=== PATIENT | male | born 1975 | race African-American/Black ===

== ENCOUNTER 2018-07-16 13:10 | Inpatient (IN) | payer SELFPAY ==
[2018-07-16] MEDS ORDERED: Labetalol HCl 100 MG/20 ML VIAL SLOW IVP PRN (14:14)
[2018-07-16] MEDS ORDERED: hydrALAZINE 20 MG/ML VIAL SLOW IVP PRN (14:14)
[2018-07-16] MEDS ORDERED: Acetaminophen 1,000 MG in Premix Bag 1 BAG IVPB SCH (14:15)
[2018-07-16] MEDS ORDERED: Acetaminophen 1,000 MG in Premix Bag 1 BAG IVPB PRN (14:15)
--- NOTE | 2018-07-16 14:59 | CT ---
EXAM: CT cervical spine PROVIDED CLINICAL HISTORY: Trauma. Subdural hematoma post head injury 2 days ago TECHNIQUE: Contiguous axial CT images are obtained through the cervical spine from the skull base to the level o f the T1 vertebral body. Sagittal and coronal reformatted images are provided. COMPARISON: None FINDINGS: Multilevel degenerative changes are seen in the cervical spine. There is straightening of the normal cervical lordotic curvature which may be related to muscle spasm or positioning. The vertebral body heights are within normal limits, no fracture or subluxation is identified. No prevertebral soft tis sachin swelling apparent. Limited visualized lung apices are clear. IMPRESSION: 1. Multilevel degenerative changes of the cervical spine without evidence of a fracture or subluxatio n. 2. Straightening of the normal cervical lordotic curvature.
--- NOTE | 2018-07-16 15:24 | CON ---
DATE OF CONSULTATION: HISTORY OF PRESENT ILLNESS: Mr. Peace is a pleasant 42-year-old man, presented to [facility] via transfer from [facility] for evaluation of radiographic finding of posterior fossa subdural hematoma over the left cerebellar convexity with minimal mass effect and reports of nausea, vomiting, headache as well as extraordinary hypertension at 280 systolic and bradycardia in the 40s. Upon arrival to the emergency department here, his systolic pressures are 195/118 with a pulse rate of 71. His bradycardia has been corrected some, but his blood pressure is still extraordinarily high with Cardene at 2.5, which has been started since he was initially seen in [place]. 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 He states that 2 days ago he was training a young course that is 12-vtorw-lid and he was pulled down and struck his head. He has no recollection of the events immediately surrounding the fall and head injury and does have a positive loss of consciousness and then yesterday worked a full day again outdoors with horses, which again is extensively physically strenuous. Last night, he started having nausea, vomiting, and sweats, had some more in this morning. He has been constipated for the last 4 days and states that he feels dehydrated. He also reports a bifrontal headache and pain around his eyes. Some of this certainly sounds like postconcussive symptoms. It is obvious that he had a significant head injury to develop any type of subdural hematoma, which may have been somewhat predisposition for if he was dehydrated and already hypertensive. His major concern is getting back out of the hospital, but I do feel he will likely need to stay at night, not for any imminent concern progression of his hemorrhage, but more for uncontrolled hypertension and medical problems. Reviewing his CT scan again, he does have a left cerebellar convexity subdural blood up to the cerebellar tentorium. There is no obvious mass effect on either hemisphere. His basal cisterns are all open and non-compressed. His fourth ventricle is patent. He has preserved walters-white differentiation and preserved sulci on CT throughout both hemispheres. PAST MEDICAL HISTORY: Significant for hypertension and a previous gastric ulcer. SOCIAL HISTORY: Denies daily tobacco use, but does smoke cigars occasionally. He has history positive for marijuana use weekly and drinks socially, but on rare occasion. PAST SURGICAL HISTORY: Surgery for correction of stomach ulcer. ALLERGIES: NO KNOWN DRUG ALLERGIES. CURRENT MEDICATIONS: Clonidine and atenolol, though he has been out of his medication for over 2 weeks now. PHYSICAL EXAMINATION: GENERAL: Again, the patient alert and oriented x4. HEENT: Pupils are equal, round, and reactive to light. Extraocular movements are intact. Head is normocephalic and atraumatic. I do not see any obvious signs of external blunt trauma or abrasions. Motor movements, he has 5/5 strength in all upper extremity and lower extremity movements bilaterally the cerebellar function testing, he performs heel slide and [id number] testing with ease. There is no nystagmus on visual exam. Acuity is preserved. ASSESSMENT: Hypertensive urgency, subdural hematoma status post fall, postconcussive syndrome. PLAN: Neurosurgery's recommendation right now is definitively noninterventional. I do not see any need for emergent or even delayed evacuation of this slight subdural blood, particularly since he has been 48 hours and he has not had any development of focal neurologic findings. I do feel like he would need at least overnight observation, particularly with our medicine colleagues for the correction of his hypertension wanted that is extraordinarily high and has been refractory to our typical p.r.n. medications, but additionally because of the presence of intracranial bleeding. Once this is controlled and deemed safe to discharge, we can send him home with outpatient followup in [address] scanning and he will certainly need to follow up with his primary care for more vigilant control of his hypertension. As he did suffer significant closed head injury, he will also likely need time from work to properly heal before returning again and preventing some of the symptoms that he is experiencing today. Plan will be discussed with Dr. Mccall. Job ID: [id number]
--- NOTE | 2018-07-16 15:36 | PDOC.FPRHP ---
- History of Present Illness Chief Complaint: Hypertensive urgency History of Present Illness: This is a 42 yo male with a pmh of HTN and gastric ulcer who presents to the ED with a cc of vominting. He states that on Wednesday of last week, he fell off a horse, hit the back of his head, and blacked out for less than a minute. He states that he started vomiting yesterday. He reports he has had a headache since the fall and has had multiple episodes of presyncope and sycope since then. In addition, his reports some episodes of absent starring. He also reports that he has been taking labetalol and clonidine for his HTN and has decreased his med intake. - Allergies/Adverse Reactions Allergies Allergy/AdvReac Type Severity Reaction Status Date / Time lisinopril Allergy Verified 07/16/18 18:19 - History PMHx: HTN, gastric ulcer PSHx: Gastric surgery FHx:Non-contributory Social: Smokes marijuana and tobacco - Review of Systems General: reports: weight/appetite/sleep changes, fatigue. denies: fever/chills , night sweats Eyes: denies: eye pain, vision changes ENT: denies: nasal congestion, rhinorrhea Respiratory: denies: cough, congestion, shortness of breath Cardiovascular: denies: chest pain, palpitation Gastrointestinal: reports: nausea, vomiting. denies: diarrhea, constipation, abdominal pain, GI bleeding Genitourinary: denies: incontinence, dysuria Skin: denies: rashes, lesions Musculoskeletal: reports: pain (neck pain) Neurological: reports: syncope, weakness. denies: numbness, seizure Psychological: denies: anxiety, depression - Vital signs BP: 208/119 HR: 59 RR: 19 Tmax: 99.1 Pox: 100% on ra Wt: 78 kg - Physical Exam Constitutional: NAD, awake, alert and oriented, well developed HEENT: normocephalic and atraumatic, PERRLA, EOMI, TM's clear and intact, grossly normal hearing, MMM Neck: supple, FROM, trachea midline, no JVD Chest: no-tender to palpation, no lesions Heart: RRR, normal S1/S2, pulses present Lungs: CTAB, no respiratory distress, good air movement, no wheezing, no retractions Abdomen: soft, non-tender, bowel sounds present, no masses/distention, no hernias Musculoskeletal: normal structure, normal tone, ROM grossly normal Neurological: no focal deficit, CN II-XII intact, normal sensation Skin: good turgor, capillary refill <2 seconds Heme/Lymphatic: no unusual bruising or bleeding, no purpura Psychiatric: normal mood and affect, good judgment and insight, intact recent and remote memory FMR H&P: Results - Labs Lab results: WBC 5.2 Hgb 14.1 MCV 89.6 Plt 204 INR 1.0 Na 139 K 3.4 Cl 98 Bicarb 31 BUN 17 Cr 1.50 Glucose 108 - Radiology Interpretation Other Status: report reviewed by me (CT Neck 1. Multilevel degenerative changes of the cervical spine without evidence of a fracture or subluxatio n. 2. Straightening of the normal cervical lordotic curvature.) CT scan - head Status: report reviewed by me (Acute subdural hematoma, left with no midline shift) FMR H&P: A/P - Problem List (1) Hypertensive urgency Current Visit: Yes Status: Acute Code(s): I16.0 - HYPERTENSIVE URGENCY (2) Subdural hematoma, acute Current Visit: Yes Status: Acute Code(s): S06.5X9A - TRAUM SUBDR HEM W LOC OF UNSP DURATION, INIT - Plan This is a 42 yo male with a pmh of HTN and gastric ulcer Hypertensive urgency -Initial BP 250/130s, asymptomatic, at goal now -BP goals <180/110 -Tele stroke -PRN nifedipine and hydralazine -Scheduled HCTZ -Plan to transition to HCTZ, consider amlodipine if needed Subdural hematoma -S/P fall, no neural defect -Tele stroke -Neurosurgery reports no surgical intervention needed, only BP control -Kepra for seizure prophylaxis Hx of gastric ulcer -avoid NSAIDs, pepcid for prophylaxis Code: Full Prophylaxis: SCDs, Pepcid Family: at bedside Diet: HH Disposition: home in 1-2 days pending stable BP FMR H&P: Upper Level - Pertinent history 42 year old male with PMH HTN presents with a one day history of intermittent N/ V and headache. Patient states that the nausea started on . On Wednesday , patient was training a horse and the horses head hit the back of his head and knocked him out. Patient is uncertain of how long he lost consciousness for. His friend was present during the incident and was able to get him away from the scene. Patient thinks he was out for only a few seconds to a few minutes. He woke up and had no deficits. Aside from hurting in the back of his head where he got hit, patient states he otherwise felt fine at that time. Several hours later he started to feel nauseous. He had several episodes of emesis, NBNB. He endorses feeling generally weak. Patient denies smoking cigarettes, but endorses smoking "other things". He would not elicit what those other things were. Patient does endorse some photophobia since the incident. states that she will be talking to him and he seems to go in and out of being able to pay attention to the conversation. He "blacks out" and then returns to the conversation after several seconds. This has not happened previously. - Pertinent findings General: Alert and oriented x3. No acute distress. HEENT: PERRL, EOMI. Examination of head atraumatic and normocephalic. Resp: CTA b/l, no acute respiratory distress Cardio: RRR, No murmurs Neuro: No focal deficits. Strength 5/5 in upper and lower extremities b/l. CN II -XII intact. GCS 15. Ext: No edema or cyanosis. Abdomen: Soft, non-tender, bowel sounds present - Plan Date/Time: 07/16/186 IYamilka, have evaluated this patient and agree with findings/plan as outlined by international logistics coordinator resident. Pertinent changes/additions are listed here. A/P: 1. Acute subdural hematoma - 2/2 trauma that occurred on Thursday 07/13 - Associated with N/V - CT brain evidence of acute subdural hematoma - CT cervical spine shows degenerative changes with no evidence of acute osseous abnormalities - Neurosurgery consulted from ED; no surgical interventions to be made at this timeF, advised BP parameters of SBP <180 and pulse >70. Patient was started on diltiazem drip in ED, but pulse dropping into 40's. D/c'd diltiazem drip and transitioned to maintenance medication with HCTZ and PRN hydralazine/ nifedipine. Avoiding labetolol d/t affects on pulse, as well at this time. - Though patient does not have severe TBI, will initiate seizure ppx with keppra at this time 2. HTN urgency - In setting of subdural hematoma 2/2 recent trauma - Patient with known history of HTN on clonidine recently changed from 2x/day to 1x/day - Component of HTN may be d/t rebound HTN - Will d/c clonidine as home BP medication and transition to HCTZ BID - Hydralazine PRN - Severe allergy to lisinopril preventing use of MOHIT-I's (angioedema) - UDS pending 3. Hx bleeding ulcer - Avoid NSAIDs - Tylenol PRN for pain - GI ppx DVT ppx: SCD's (d/t subdural hematoma) GI ppx: Famotidine Code status: Full Dispo: Admit to stroke unit with telemetry monitoring. Anticipate LOS >48 hours.
[2018-07-16] MEDS ORDERED: Acetaminophen 500 MG TAB ONE (16:04)
[2018-07-16] MEDS ORDERED: hydrALAZINE 20 MG/ML VIAL ONE (17:35)
[2018-07-16] MEDS ORDERED: niCARdipine HCl 25 MG in Sodium Chloride 0.9% 250 ML 240 ML IVPB SCH (18:30)
[2018-07-16 18:36] VITALS: BMI 27.4
[2018-07-16] MEDS ORDERED: NIFEdipine 10 MG CAP PO PRN (18:36)
[2018-07-16] MEDS ORDERED: levETIRAcetam In NaCl (Iso-Os) 1,500 MG in Premix Bag 1 BAG IVPB SCH (18:45)
[2018-07-16 19:37] LABS: Syphilis Antibody Nonreactive (Nonreactive); Syphilis Antibody Index 0.09 S/CO (<1.00 Non-Reactive)
[2018-07-16] MEDS: Famotidine 20 MG TAB PO SCH (20:36)
[2018-07-16] MEDS: Hydrochlorothiazide 25 MG TAB PO SCH (20:36)
[2018-07-16] MEDS ORDERED: traMADol HCl 50 MG TAB PO SCH (20:45)
[2018-07-16] MEDS: hydrALAZINE 20 MG/ML VIAL SLOW IVP PRN (20:52)
[2018-07-16] MEDS ORDERED: Hydrochlorothiazide 25 MG TAB PO SCH (21:00)
[2018-07-16 21:20] LABS: Amphetamine Not Detected (NotDetected); Barbiturates Screen Not Detected (NotDetected); Benzodiazepine Screen Not Detected (NotDetected); Cocaine Metabolite Screen Not Detected (NotDetected); Medtox Control Line Valid? VALID (VALID); Medtox Reader # READER 4; Methadone Not Detected (NotDetected); Methamphetamine Not Detected (NotDetected); Opiate Screen Not Detected (NotDetected); Oxycodone Screen Not Detected (NotDetected); Phencyclidine (PCP) Not Detected (NotDetected); THC/Cannabinoid Screen Detected (NotDetected); Tricyclic Screen Not Detected (NotDetected)
[2018-07-16] MEDS ORDERED: Ondansetron ODT 4 MG TAB PO SCH (22:15)
[2018-07-16] MEDS: Acetaminophen 500 MG TAB PO SCH (23:13)
--- NOTE | 2018-07-16 23:21 | HP ---
I have examined the patient. I have discussed the case with Dr. Omar Medel. I agreed with his assessment and plan. HISTORY OF PRESENT ILLNESS: Mr. Peace is a pleasant 42-year-old black male patient, whose history was started 2 days ago. He was riding a horse near [place], [place], when he was thrown and hit his head. There was loss of consciousness for he believes at least several minutes. He was assisted up eventually by his cousin, but proceeded to vomit and feel he had a headache. He did not immediately seek medical attention. Yesterday, he had a full day of working with his horses, but began to again have some nausea, vomiting, bad headache. He was subsequently went to the [place] ER, where a CT demonstrated a subdural hematoma, and he was transferred here. PHYSICAL EXAMINATION: GENERAL: Currently, Mr. Peace is awake and alert. He is pleasant, cooperative, and oriented x3. He has already been seen by the Neurosurgery Service. They do not feel any neurosurgery is needed at this time, but have recommended admission for better blood pressure control. Evidently yesterday, it was up in the range of 200 to 220 and earlier this morning. EARS, NOSE, AND THROAT: He is tender along the base of the neck and occipital. No penetrating trauma noted. No focal deficits. ENT otherwise clear. NEUROLOGIC: His cranial nerve exam is normal. Neurologically, no focal deficits. NECK: Tender, but supple. CARDIAC: Heart rhythm is regular. No gallop or murmur noted. LUNGS: Clear without rales or wheezes. ABDOMEN: Flat and soft. No guarding, rebound, or rigidity. EXTREMITIES: He peripherally has no edema. LABORATORY DATA: Still pending. DIAGNOSTIC DATA: His CT done at [place] is as follows. Impression was an acute subdural hematoma. There was a hyperdensity seen along the cerebellar tentorium, greater to the left, indicative of acute subdural hematoma. There was mild component along the interhemispheric falx. Ventricular system appeared normal. The cerebellar parenchyma revealed no intrinsic edema. There was no midline shift and no significant mass effect. He also has undergone a cervical spine CT. There were multilevel degenerative changes of the cervical spine, but no evidence of fracture or subluxation. ASSESSMENT: 1. Subdural hematoma. 2. Uncontrolled hypertension. PLAN: Admit, observe. He is already on a CCB drip and currently his blood pressure is 158/113. Again, he is completely awake, alert, and appears to be in no distress. Job ID: [id number]
[2018-07-17] MEDS: Acetaminophen 500 MG TAB PO SCH ×4 (05:09→23:17)
--- NOTE | 2018-07-17 06:10 | PDOC.FM ---
- Subjective Subjective: Daughter reports he was restless overnight. He reports a headache this morning. Denies SOB, CP, or nausea/vomiting - Objective MAR Reviewed: Yes Vital Signs & Weight: Vital Signs (12 hours) Temp Pulse Resp BP BP Pulse Ox 07/17/18 05:00 52 L 169/100 H 07/17/18 04:44 170/80 H 07/17/18 03:57 97.8 F 62 18 152/81 H 98 07/17/18 02:00 58 L 160/92 H 07/17/18 00:00 98.4 F 81 18 155/87 H 98 07/16/18 23:17 166/83 H 07/16/18 23:00 59 L 164/89 H 07/16/18 22:31 166/84 H 07/16/18 21:58 50 L 180/91 H 07/16/18 21:50 192/92 H 07/16/18 21:30 175/88 H 07/16/18 20:52 71 215/119 H 07/16/18 20:50 215/119 H 07/16/18 20:30 172/103 H 07/16/18 20:15 186/100 H 07/16/18 20:00 98.4 F 71 18 189/109 H 98 07/16/18 19:05 78 186/117 H 07/16/18 19:01 194/119 H 07/16/18 18:28 98.1 F 60 18 202/110 H 96 Weight Weight 77.247 kg Result Diagrams: 07/17/18 06:17 Phys Exam - Physical Examination Constitutional: NAD HEENT: moist MMs Neck: no JVD, full ROM Respiratory: no wheezing, no rales, clear to auscultation bilateral Cardiovascular: RRR, no significant murmur, no rub Gastrointestinal: soft, non-tender, no distention, positive bowel sounds Musculoskeletal: no edema, pulses present Neurological: normal sensation, moves all 4 limbs Psychiatric: normal affect, A&O x 3 Skin: cap refill <2 seconds Dx/Plan (1) Hypertensive urgency Code(s): I16.0 - HYPERTENSIVE URGENCY Status: Acute (2) Subdural hematoma, acute Code(s): S06.5X9A - TRAUM SUBDR HEM W LOC OF UNSP DURATION, INIT Status: Acute - Plan Plan: This is a 42 yo male with a pmh of HTN and gastric ulcer Hypertensive urgency -Initial BP 250/130s, asymptomatic, at goal now -BP goals <180/110 -Tele stroke -PRN nifedipine and hydralazine -Scheduled HCTZ -Plan to transition to HCTZ, consider amlodipine if needed Subdural hematoma -S/P fall, no neural defect -Tele stroke -Neurosurgery reports no surgical intervention needed, only BP control -Kepra for seizure prophylaxis Hx of gastric ulcer -avoid NSAIDs, pepcid for prophylaxis
[2018-07-17] MEDS: hydrALAZINE 20 MG/ML VIAL SLOW IVP PRN ×8 (06:13→23:17)
[2018-07-17 07:06] LABS: Anion Gap 14 mmol/L (10-20); BUN (Urea Nitrogen) 18 mg/dL (8.9-20.6); Calc. Creatinine Clearance 78 mL/min (70-130); Calcium 9.3 mg/dL (7.8-10.44); Carbon Dioxide 25 mmol/L (22-29); Chloride 96 mmol/L (98-107); Estimated GFR-MDRD 71; Glucose 96 mg/dL (70-105); Sodium 132 mmol/L (136-145)
--- NOTE | 2018-07-17 08:18 | PRG ---
DATE OF SERVICE: 07/17/2018 Mr. Peace this morning is a little less interactive. He is resting in the room, but does awaken when spoken to. He reports more headaches and neck pain than he had yesterday. His pressure has improved drastically for the systolic 170 and diastolic in the 80s, so this is now better controlled. From Neurosurgery's perspective, we still offer nonsurgical intervention for his subdural hematoma. I would like to evaluate this today with another CT scan to ensure that there is no drastic change. If stable, then he is free from our perspective to be discharged at any time whenever primary team seems appropriate. He will need to follow up with his primary care physician's office today in the outpatient setting for hypertensive issues, and I will need to see him likely within a week to establish his recovery from a concussive standpoint. I do not think that he should return to work until we see him in that week timeframe concerning worsening of his PCS symptoms again. Job ID: [id number]
--- NOTE | 2018-07-17 09:12 | CT ---
CT Brain WO Con: 07/17/2018 7:28 AM CLINICAL HISTORY: Intracranial hemorrhage, follow-up, head injury. COMPARISON: Previous day's CT head exam FINDINGS: Hemorrhage: Grossly stable subdural hemorrhage along the left cerebellar tentorium and stable minimal density along the interhemispheric falx. Ventricular system: Normal in size and morphology for the patient's age. Cerebral parenchyma: No significant interval change. Midline shift: None. Mass: No mass effect. Calvarium: Normal. Visualized Paranasal sinuses: Clear. IMPRESSION: Stable subdural hemorrhage.
[2018-07-17 09:16] LABS: Hemoglobin 15.1 g/dL (14.0-18.0); Mean Corpuscular HGB CONC 33.1 g/dL (32.0-36.0); Mean Corpuscular Hemoglobin 30.3 pg (27.0-31.0); Mean Corpuscular Volume 91.7 fL (78.0-98.0); Mean Platelet Volume 8.2 fL (7.4-10.4); Platelet Count 219 thou/uL (130-400); RBC Distribution Width 12.2 % (11.5-14.5); Red Blood Cell (RBC) Count 4.99 mill/uL (4.70-6.10)
[2018-07-17 09:22] LABS: Lymphocytes 19 % (21-51); MDiff Complete? YES; Monocytes 14 % (0-10); Neutrophil 65 % (42-75); Platelet Morphology Comment Appears Adequate; RBC Morphology Normal; Reactive Lymphocytes 2 % (0-10)
[2018-07-17] MEDS: levETIRAcetam In NaCl (Iso-Os) 1,000 MG in Premix Bag 1 BAG IVPB SCH ×2 (09:38→21:08)
[2018-07-17] MEDS: Hydrochlorothiazide 25 MG TAB PO SCH ×2 (09:39→21:07)
[2018-07-17] MEDS: Famotidine 20 MG TAB PO SCH ×2 (09:40→21:07)
--- NOTE | 2018-07-17 11:34 | PRG ---
DATE OF SERVICE: 07/17/2018 Mr. Peace is having a slight occipital headache, but otherwise no change. No focal deficits. He is awake, alert, in no distress. We will continue to follow with the Neurosurgery Service and they are still recommending nonsurgical intervention and blood pressure control. They recommend we repeat a CT scan to ensure there has been no enlargement or further bleeding of the subdural hematoma. If that is stable, he will be likely ready for discharge. Job ID: [id number]
[2018-07-17] MEDS: traMADol HCl 50 MG TAB PO PRN (14:26)
[2018-07-17] MEDS ORDERED: Ondansetron HCl/PF 4 MG in Sodium Chloride 0.9% 50 ML IVPB SCH (17:30)
[2018-07-17] MEDS: Cyclobenzaprine 10 MG TAB PO PRN (21:07)
[2018-07-18] MEDS: hydrALAZINE 20 MG/ML VIAL SLOW IVP PRN ×7 (01:23→15:17)
[2018-07-18] MEDS ORDERED: Amlodipine 5 MG TAB PO SCH ×3 (02:45→09:00)
[2018-07-18] MEDS: Acetaminophen 500 MG TAB PO SCH ×4 (05:26→23:48)
--- NOTE | 2018-07-18 05:48 | PDOC.FM ---
- Subjective Subjective: No overnight events. Reports occipital headache. No changes in vision, denies weakness. Voiding and stooling. - Objective MAR Reviewed: Yes Vital Signs & Weight: Vital Signs (12 hours) Temp Pulse Resp BP BP Pulse Ox 07/18/18 05:26 75 183/98 H 07/18/18 05:00 98.8 F 82 16 165/101 H 97 07/18/18 04:37 68 163/91 H 07/18/18 03:48 68 165/101 H 07/18/18 02:52 82 180/95 H 07/18/18 01:52 68 162/84 H 07/18/18 01:23 76 196/95 H 07/18/18 01:15 196/95 H 07/18/18 00:30 178/90 H 07/18/18 00:28 98.5 F 94 16 178/90 H 95 07/17/18 23:17 67 198/97 H 07/17/18 22:00 177/100 H 07/17/18 21:28 67 210/124 H 07/17/18 21:10 67 07/17/18 21:00 193/100 H 07/17/18 20:19 98.4 F 67 16 187/96 H 97 07/17/18 20:00 177/102 H 95 07/17/18 18:28 57 L 179/103 H Weight Weight 77.247 kg I&O: 07/16/18 07/17/18 07/18/18 06:59 06:59 06:59 Intake Total 1880 Output Total 550 Balance 1330 Result Diagrams: 07/17/18 06:17 07/18/18 07:37 Phys Exam - Physical Examination Constitutional: NAD HEENT: moist MMs Neck: supple Respiratory: no wheezing, clear to auscultation bilateral Cardiovascular: RRR, no significant murmur Gastrointestinal: soft, non-tender, positive bowel sounds Musculoskeletal: pulses present Neurological: non-focal, moves all 4 limbs No dysdiadochokinesia. Normal heel to [place]. quality cloth tester intact Psychiatric: normal affect Deviation from normal: Alert and oriented to person place but not month Skin: normal turgor Dx/Plan (1) Hypertensive urgency Code(s): I16.0 - HYPERTENSIVE URGENCY Status: Acute (2) Subdural hematoma, acute Code(s): S06.5X9A - TRAUM SUBDR HEM W LOC OF UNSP DURATION, INIT Status: Acute - Plan Plan: 42yo male with pmh of HTN and gastric ulcer presenting in HTN urgency found to have subdural hematoma Hypertensive urgency - Initial BP 250/130s, asymptomatic - BP goals <180/110 - Scheduled HCTZ, starting Amlodipine 5mg today - PRN nifedipine & hydralazine - 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
[2018-07-18] MEDS: Hydrochlorothiazide 25 MG TAB PO SCH ×2 (08:00→20:34)
[2018-07-18] MEDS: Polyethylene Glycol 3350 17 GM Packet PO SCH (08:00)
[2018-07-18] MEDS: Famotidine 20 MG TAB PO SCH ×2 (08:01→20:35)
[2018-07-18] MEDS: levETIRAcetam In NaCl (Iso-Os) 1,000 MG in Premix Bag 1 BAG IVPB SCH ×2 (08:05→20:36)
[2018-07-18 08:26] LABS: Anion Gap 15 mmol/L (10-20); BUN (Urea Nitrogen) 20 mg/dL (8.9-20.6); Calc. Creatinine Clearance 72 mL/min (70-130); Calcium 9.5 mg/dL (7.8-10.44); Carbon Dioxide 28 mmol/L (22-29); Chloride 90 mmol/L (98-107); Estimated GFR-MDRD 65; Glucose 113 mg/dL (70-105); Potassium 3.2 mmol/L (3.5-5.1); Sodium 130 mmol/L (136-145)
[2018-07-18] MEDS ORDERED: Potassium Chloride 20 MEQ TAB PO SCH ×3 (09:30→23:45)
[2018-07-18] MEDS: Amlodipine 10 MG TAB PO SCH (10:02)
--- NOTE | 2018-07-18 13:58 | PRG ---
DATE OF SERVICE: 07/18/2018 Mr. Peace still complains of headache, but otherwise no change in his clinical status. His repeat CT did not show any extension or expansion of the subdural hematoma. Blood pressure is getting better, but still not ideal control. I would like to get him down around 160/90 or less before discharge. We are making daily adjustments in his medications. Clinically, however, he remains quite stable. Job ID: [id number]
[2018-07-18] MEDS: hydrALAZINE 25 MG TAB PO SCH ×2 (15:16→20:35)
[2018-07-18 16:11] LABS: Lavender RECEIVED; Red RECEIVED
[2018-07-18] MEDS ORDERED: Lorazepam 2 MG/ML VIAL SLOW IVP PRN (16:17)
--- NOTE | 2018-07-18 16:21 | PDOC.EVN ---
Addendum entered and electronically signed by Yashira Yarbrough MD 07/18/18 16:25 : Discussed event with Neurosurg, they recommended repeat Noncon Brain CT Original Note: Event Note - Event Note Event Note: [facility] called. Reported that pt had seizure like activity of full body shaking <1min in duration. Did not hit his head, diaphoretic, no loss of urine. Pt appeared to be postictal with slow return to baseline mental status. Pt currently on keppra. Ordered prolactin, CBC, CMP and Keppra level. Will notify neurosurgery for further recs. Ativan PRN for seizures. BP 150's/70s, HR 70's, afebrile. There was concern for ST segment elevation on tele. Ordered EKG and troponin/CKMB.
[2018-07-18 16:35] LABS: Hemoglobin 15.6 g/dL (14.0-18.0); Mean Corpuscular Hemoglobin 30.1 pg (27.0-31.0); Mean Corpuscular Volume 91.2 fL (78.0-98.0); Mean Platelet Volume 8.1 fL (7.4-10.4); Platelet Count 243 thou/uL (130-400); RBC Distribution Width 12.3 % (11.5-14.5); Red Blood Cell (RBC) Count 5.18 mill/uL (4.70-6.10); White Blood Cell (WBC) Count 8.6 thou/uL (4.8-10.8)
[2018-07-18 16:46] LABS: Anion Gap 18 mmol/L (10-20); BUN (Urea Nitrogen) 21 mg/dL (8.9-20.6); Calc. Creatinine Clearance 61 mL/min (70-130); Calcium 9.9 mg/dL (7.8-10.44); Carbon Dioxide 27 mmol/L (22-29); Chloride 88 mmol/L (98-107); Estimated GFR-MDRD 53; Glucose 135 mg/dL (70-105); Sodium 131 mmol/L (136-145)
[2018-07-18 16:54] LABS: Potassium 2.3 mmol/L (3.5-5.1)
[2018-07-18 17:02] LABS: Lymphocytes 24 % (21-51); MDiff Complete? YES; Monocytes 9 % (0-10); Neutrophil 66 % (42-75); Platelet Morphology Comment Appears Adequate; RBC Morphology Normal; Reactive Lymphocytes 1 % (0-10)
--- NOTE | 2018-07-18 17:11 | CT ---
CT Brain WO Con: 07/18/2018 4:25 PM CLINICAL HISTORY: History of fall with head injury and intracranial hemorrhage. IMAGING TECHNIQUE: Multiple CT images were obtained of the brain without IV contrast. COMPARISON: CT of the brain dated July 17, 2018 and July 16, 2018 FINDINGS: Extra axial spaces: Normal in size and morphology for the patient's age. Hemorrhage: The subdural hematoma along the left tentorium and along the interhemispheric falx appear s stable.. Ventricular system: Normal in size and morphology for the patient's age. Basal cisterns: Normal. Cerebral parenchyma: Normal. Midline shift: None. Cerebellum: Normal. Brainstem: Normal. OTHER: Calvarium: Normal. Vascular system: Normal. Visualized Paranasal sinuses: Clear. Visualized Orbits: Normal. Visualized upper cervical spine: Normal. Sella and skull base: Normal. IMPRESSION: Stable appearance to the subdural hemorrhage along the left cerebellar tentorium and along the interh emispheric falx.
[2018-07-18] MEDS: Potassium Chloride 20 MEQ TAB PO SCH (17:48)
[2018-07-18] MEDS ORDERED: Labetalol HCl 100 MG/20 ML VIAL SLOW IVP PRN (17:53)
[2018-07-18 18:24] LABS: CKMB 3.5 ng/mL (0-6.6)
[2018-07-18 23:26] LABS: Anion Gap 15 mmol/L (10-20); BUN (Urea Nitrogen) 24 mg/dL (8.9-20.6); Calc. Creatinine Clearance 64 mL/min (70-130); Calcium 9.7 mg/dL (7.8-10.44); Carbon Dioxide 28 mmol/L (22-29); Chloride 89 mmol/L (98-107); Estimated GFR-MDRD 57; Glucose 110 mg/dL (70-105); Sodium 129 mmol/L (136-145)
[2018-07-18 23:27] LABS: Potassium 2.9 mmol/L (3.5-5.1)
[2018-07-18 23:53] LABS: CKMB 4.6 ng/mL (0-6.6)
[2018-07-18] MEDS: Cyclobenzaprine 10 MG TAB PO PRN (23:57)
--- NOTE | 2018-07-19 00:56 | PDOC.EVN ---
Event Note - Event Note Event Note: Called by nurse for hypokalemia as well as elevated troponin. Potassium replaced PO. Discussed with cardiology this afternoon for elevated trop following seizure and thought to be related to the seizure. He also has had no chest pain. Patient still reports no chest pain, no chest pressure, no complaints. No SOB, no diaphoresis or nausea. EKG: juntional tachycardia (inverted P waves and short MT interval.) rate appears to be 108. sT wave inversion in lateral leads. QTc has improved from 563 earlier today to 479. Heart: RRR, no M/R/G Junctional tachycardia -Tele monitor no longer appears to have inverted P wave -Now appears to be in sinus rhythm -consult cardiology in AM elevated Trop (NSTEMI range) -No chest pain -cont to trend -CKMB remains stable/low -consult cards in AM -anticoagulation contraindicated given his subdural hematoma
[2018-07-19] MEDS: Acetaminophen 500 MG TAB PO SCH ×4 (05:19→23:18)
[2018-07-19 06:04] LABS: Anion Gap 16 mmol/L (10-20); BUN (Urea Nitrogen) 20 mg/dL (8.9-20.6); Calc. Creatinine Clearance 70 mL/min (70-130); Calcium 9.7 mg/dL (7.8-10.44); Carbon Dioxide 25 mmol/L (22-29); Chloride 94 mmol/L (98-107); Estimated GFR-MDRD 63; Glucose 94 mg/dL (70-105); Potassium 3.2 mmol/L (3.5-5.1); Sodium 132 mmol/L (136-145)
[2018-07-19 06:06] LABS: Critical Call Chem Troponin I RESULT DECREASING
[2018-07-19 06:24] LABS: CKMB 3.4 ng/mL (0-6.6)
--- NOTE | 2018-07-19 06:46 | PDOC.FM ---
- Subjective Subjective: No seizures overnight. He does not remember events of yesterday. Had seizure in 2012 that he reports was caused by "Peptic ulcer, coffee ground emesis." Unsure if was on seizure medication at that time or followed up with neurologist. Denies chest pain, nausea, vomiting, sob, abdominal pain. Endorses occipital headache. No hx of diabetes. - Objective MAR Reviewed: Yes Vital Signs & Weight: Vital Signs (12 hours) Temp Pulse Resp BP Pulse Ox 07/19/18 04:00 98.7 F 99 18 168/92 H 97 07/19/18 00:00 98.5 F 92 20 160/93 H 96 07/18/18 20:00 98.4 F 116 H 19 159/104 H 96 07/18/18 19:01 90 165/72 H Weight Weight 77.247 kg I&O: 07/17/18 07/18/18 07/19/18 06:59 06:59 06:59 Intake Total 2360 1320 Output Total 800 50 Balance 1560 1270 Result Diagrams: 07/18/18 16:06 07/19/18 05:07 Phys Exam - Physical Examination Constitutional: NAD HEENT: moist MMs Neck: supple Respiratory: no wheezing, clear to auscultation bilateral Cardiovascular: RRR systolic murmur 2/6 Gastrointestinal: soft, non-tender, positive bowel sounds Musculoskeletal: no edema Neurological: moves all 4 limbs Psychiatric: normal affect, A&O x 3 Skin: normal turgor Dx/Plan (1) Hypertensive urgency Code(s): I16.0 - HYPERTENSIVE URGENCY Status: Acute (2) Subdural hematoma, acute Code(s): S06.5X9A - TRAUM SUBDR HEM W LOC OF UNSP DURATION, INIT Status: Acute (3) Elevated troponin Code(s): R74.8 - ABNORMAL LEVELS OF OTHER SERUM ENZYMES Status: Acute (4) Seizure Code(s): R56.9 - UNSPECIFIED CONVULSIONS Status: Acute (5) Hyponatremia Code(s): E87.1 - HYPO-OSMOLALITY AND HYPONATREMIA Status: Acute (6) Hypokalemia Code(s): E87.6 - HYPOKALEMIA Status: Acute - Plan Plan: 42yo male with pmh of HTN and gastric ulcer presenting in HTN urgency found to have subdural hematoma Hypertensive urgency - Initial BP 250/130s, asymptomatic - BP goals <180/110 - Continue HCTZ, Amlodipine 10mg, PO hydralazine - PRN nifedipine & hydralazine Seizure - Likely result of subdural hematoma although pt with hx of seizure 2011 - Continue Keppra - Neurology following - Prolactin 32.44 - Repeat CT no changes - Seizure precautions and Ativan PRN Elevated Troponin - Downtrending, possibly result of seizure. Pt denies chest pain - 0.372-> 0.784-> 0.446 - Serial EKGs overnight with no evidence for acute ischemia - Cardiology consulted Subdural hematoma - S/p fall, no neural defect - Neurosurgery reports no surgical intervention needed, only BP control - Keppra for seizure prophylaxis - F/u in 4 wks outpt for repeat CT Hyponatremia - Continue to monitor with BMPs, stop HCTZ if continues to worsen Hypokalemia - Continue to replace with KCl, trend BMP ARABELLA vs CKD - Unknown baseline - Monitor with daily BMP Hx of gastric ulcer - Avoid NSAIDs, Continue pepcid Code Status: FULL DVT ppx: SCDs PCP: Dr Schneider ([place])
[2018-07-19 08:38] LABS: Hemoglobin A1c 4.7 % (4.0-6.0)
[2018-07-19] MEDS: Potassium Chloride 20 MEQ TAB PO SCH ×2 (08:47→16:56)
[2018-07-19] MEDS: Amlodipine 10 MG TAB PO SCH (08:47)
[2018-07-19] MEDS: hydrALAZINE 25 MG TAB PO SCH ×3 (08:48→21:46)
[2018-07-19] MEDS: Famotidine 20 MG TAB PO SCH ×2 (08:48→21:46)
[2018-07-19] MEDS: traMADol HCl 50 MG TAB PO PRN (08:48)
[2018-07-19] MEDS: Hydrochlorothiazide 25 MG TAB PO SCH (08:48)
[2018-07-19] MEDS: Polyethylene Glycol 3350 17 GM Packet PO SCH (08:49)
[2018-07-19] MEDS: Cyclobenzaprine 10 MG TAB PO PRN ×2 (08:49→21:50)
[2018-07-19] MEDS: levETIRAcetam In NaCl (Iso-Os) 1,000 MG in Premix Bag 1 BAG IVPB SCH ×2 (08:49→21:45)
[2018-07-19] MEDS ORDERED: hydrALAZINE 25 MG TAB PO SCH ×2 (10:45→11:15)
--- NOTE | 2018-07-19 12:25 | CON ---
DATE OF CONSULTATION: 07/19/2018 REASON FOR CONSULTATION: 1. Hypertensive heart disease with uncontrolled blood pressure. 2. Abnormal EKG. 3. Increased troponin. 4. Recent fall from a horse and subsequent subdural hematoma. HISTORY OF PRESENT ILLNESS: Mr. William Peace is a 42-year-old gentleman, who was thrown from his horse and hit his head. The patient felt some nausea and headache, and went in for evaluation and found to have a subdural hematoma. At the time of arrival there, the patient did have sinus bradycardia. He was on atenolol and clonidine. PAST MEDICAL HISTORY: Longstanding hypertension. He said he say the doctor once a year. The patient thinks his blood pressure was fairly well controlled but as mentioned, he only saw the doctor he thinks once a year. He tells me his blood pressure was in the 130 to 140 over 90 to 100 range, but the patient is sleepy and I am not sure how accurate these numbers are. The patient stated he had chest pain years ago, but cannot really tell me what it was like. No recent chest pain. Past medical history of hypertension, longstanding. He said for over 10 years, but he really cannot tell me how long. MEDICATIONS: He is on atenolol and clonidine. REVIEW OF SYSTEMS: CONSTITUTIONAL: No significant weight gain or loss. VISION: No changes. HEARING: No changes. PULMONARY: No cough or wheezing. GASTROINTESTINAL: No nausea, vomiting, or diarrhea. SKIN: No rashes. NEUROLOGIC: No unilateral weakness or numbness. PSYCHIATRIC: No unusual depression or anxiety. PHYSICAL EXAMINATION: GENERAL: A 42-year-old gentleman, somewhat sleepy with lights were out when came into the room. VITAL SIGNS: Blood pressure 143/94, another of 156/102, but earlier this morning 194/105. Pulse is in the 70s currently. EYES: Sclerae nonicteric. MOUTH: Mucous membranes are moist. NECK: Supple. No lymphadenopathy. LUNGS: Clear. No wheezing, rales, or rhonchi. CARDIAC: Normal S1, normal S2. There is a 2/6 mid systolic murmur at the apex. No diastolic murmur. No S3. ABDOMEN: Soft, nontender. EXTREMITIES: No clubbing or cyanosis. There is no edema. Peripheral pulses are present. SKIN: Warm and dry. PERTINENT LABORATORIES: Peak troponin was 0.78. Potassium is 3.2. EKG looks like sinus rhythm with left ventricular repolarization changes. There was what appears to be an accelerated idioventricular rhythm. In addition, it sounds like the patient had a seizure early this morning, unrelated to any dysrhythmia. ASSESSMENT: 1. Recent fall with subdural hematoma, stable. 2. Hypertensive heart disease with uncontrolled blood pressure. 3. Increased troponin probably demand ischemia. 4. Recent seizure. 5. Hyponatremia could have been playing some role in the seizure. PLAN: 1. I agree with dihydropyridine. If amlodipine does not control his pressure, may need to consider Procardia XL. It is more effective than dihydropyridine. 2. In view of the hyponatremia, it could be appropriate to stop diuretic. 3. Resume low-dose beta rod. 4. Echocardiogram pending. We will be glad to follow with you. Job ID: [id number]
[2018-07-19 12:29] LABS: Cardiac Risk 3.1 (Less than 4.5)
[2018-07-19] MEDS ORDERED: Atenolol 25 MG TAB PO SCH (12:30)
--- NOTE | 2018-07-19 15:14 | PRG ---
DATE OF SERVICE: Yesterday after, Mr. Peace had a seizure despite being on Keppra. We did repeat a head CT as per recommendation of Neurosurgery that showed no extension or expansion of the subdural hematoma. After it was noted that troponin had risen into the NSTEMI range, Cardiology was consulted and Dr. Morris saw the patient today. He felt that this was demand ischemia and recommended that we continue to monitor as well as continue to treat the patient's hypertension. Mr. Peace is in no distress at the time of my exam. We also heard a grade 1/6 to 2/6 systolic murmur heard best at the apex and we are obtaining an echocardiogram. Job ID: [id number]
--- NOTE | 2018-07-19 23:07 | EKG ---
Test Reason : Blood Pressure : / mmHG Vent. Rate : 069 BPM Atrial Rate : 069 BPM P-R Int : 130 ms QRS Dur : 102 ms QT Int : 526 ms P-R-T Axes : 067 -49 094 degrees QTc Int : 563 ms Sinus rhythm with Fusion complexes Left anterior fascicular block Left ventricular hypertrophy with repolarization abnormality Prolonged QT Abnormal ECG No previous ECGs available Confirmed by SANJANA PITTMAN ([id number]) on 07/19/2018 11:07:42 PM Referred By: ZOHRA *r Confirmed By:SANJANA PITTMAN
--- NOTE | 2018-07-19 23:12 | EKG ---
Test Reason : ROUTINE Blood Pressure : / mmHG Vent. Rate : 108 BPM Atrial Rate : 108 BPM P-R Int : 120 ms QRS Dur : 084 ms QT Int : 358 ms P-R-T Axes : -89 -86 102 degrees QTc Int : 479 ms Unusual P axis, possible ectopic atrial tachycardia Left axis deviation Voltage criteria for left ventricular hypertrophy T wave abnormality, consider lateral ischemia Abnormal ECG When compared with ECG of 18-JUL-2018 16:08, (Unconfirmed) Significant changes have occurred Confirmed by SANJANA PITTMAN ([id number]) on 07/19/2018 11:12:06 PM Referred By: Confirmed By:SANJANA PITTMAN
--- NOTE | 2018-07-20 06:13 | PDOC.FM ---
- Subjective Subjective: No overnight events or seizures. Continues to have occipital headache. Denies chest pain, shortness of breath, weakness, tingling. - Objective MAR Reviewed: Yes Vital Signs & Weight: Vital Signs (12 hours) Temp Pulse Resp BP Pulse Ox 07/20/18 04:00 97.9 F 74 16 166/95 H 98 07/20/18 00:00 98.5 F 79 16 167/96 H 96 07/19/18 20:00 98.2 F 86 16 153/91 H 98 Weight Weight 77.247 kg I&O: 07/18/18 07/19/18 07/20/18 06:59 06:59 06:59 Intake Total 2360 1320 1320 Output Total 800 50 0 Balance 1560 1270 1320 Result Diagrams: 07/18/18 16:06 07/20/18 07:17 Phys Exam - Physical Examination Constitutional: NAD HEENT: moist MMs Neck: supple Respiratory: no wheezing, clear to auscultation bilateral Cardiovascular: RRR systolic murmur loudest at apex Gastrointestinal: soft, non-tender, positive bowel sounds Musculoskeletal: no edema Neurological: moves all 4 limbs Psychiatric: normal affect, A&O x 3 Skin: no rash Dx/Plan (1) Hypertensive urgency Code(s): I16.0 - HYPERTENSIVE URGENCY Status: Acute (2) Subdural hematoma, acute Code(s): S06.5X9A - TRAUM SUBDR HEM W LOC OF UNSP DURATION, INIT Status: Acute (3) Elevated troponin Code(s): R74.8 - ABNORMAL LEVELS OF OTHER SERUM ENZYMES Status: Acute (4) Seizure Code(s): R56.9 - UNSPECIFIED CONVULSIONS Status: Acute (5) Hyponatremia Code(s): E87.1 - HYPO-OSMOLALITY AND HYPONATREMIA Status: Acute (6) Hypokalemia Code(s): E87.6 - HYPOKALEMIA Status: Acute - Plan Plan: 42yo male with pmh of HTN and gastric ulcer presenting in HTN urgency found to have subdural hematoma Hypertensive urgency - Initial BP 250/130s, asymptomatic - BP goals <180/110 - Continue HCTZ, Amlodipine 10mg, PO hydralazine - PRN nifedipine & hydralazine. Has not needed in last 24hrs - Continue to monitor hyponatremia, HCTZ may need to be stopped. Cardiology recommends Procardia XL if Amlodipine does not control BP. Was trying to avoid this if possible as cost of medications is concern for pt financially. Pt has lisinopril allergy, not an option for BP control. - Started Atenolol 25mg - Echo pending Seizure - Likely result of subdural hematoma vs hyponatremia. Pt with hx of seizure 2011 - Continue Keppra - Neurology following - Prolactin 32.44 - Repeat CT no changes - Seizure precautions and Ativan PRN Elevated Troponin - Likely demand ischemia. Pt denies chest pain - 0.372-> 0.784-> 0.446 - Cardiology consulted Subdural hematoma - S/p fall, no neural defect - Neurosurgery reports no surgical intervention needed, only BP control - Keppra for seizure prophylaxis - F/u in 4 wks outpt for repeat CT Hyponatremia - Continue to monitor with BMPs, stop HCTZ if continues to worsen - Mg 1.9 Hypokalemia - Continue to replace with KCl, trend BMP. Possibly a result of HCTZ. - Checking Aldosterone, renin ARABELLA vs CKD - Unknown baseline - Monitor with daily BMP Hx of gastric ulcer - Avoid NSAIDs, Continue pepcid Code Status: FULL DVT ppx: SCDs PCP: Dr Schneider ([place])
[2018-07-20] MEDS: Acetaminophen 500 MG TAB PO SCH ×3 (06:16→17:13)
[2018-07-20 07:46] LABS: Anion Gap 14 mmol/L (10-20); BUN (Urea Nitrogen) 18 mg/dL (8.9-20.6); Calc. Creatinine Clearance 76 mL/min (70-130); Calcium 9.9 mg/dL (7.8-10.44); Carbon Dioxide 27 mmol/L (22-29); Chloride 96 mmol/L (98-107); Estimated GFR-MDRD 70; Glucose 91 mg/dL (70-105); Potassium 3.7 mmol/L (3.5-5.1); Sodium 133 mmol/L (136-145)
[2018-07-20] MEDS: hydrALAZINE 25 MG TAB PO SCH ×3 (08:21→21:41)
[2018-07-20] MEDS: Polyethylene Glycol 3350 17 GM Packet PO SCH (08:21)
[2018-07-20] MEDS: Potassium Chloride 20 MEQ TAB PO SCH ×2 (08:22→17:08)
[2018-07-20] MEDS: Famotidine 20 MG TAB PO SCH ×2 (08:23→21:40)
[2018-07-20] MEDS: levETIRAcetam In NaCl (Iso-Os) 1,000 MG in Premix Bag 1 BAG IVPB SCH (08:23)
[2018-07-20] MEDS: Amlodipine 10 MG TAB PO SCH (08:23)
[2018-07-20] MEDS ORDERED: Atenolol 25 MG TAB PO SCH ×2 (09:00→09:08)
[2018-07-20] MEDS ORDERED: Amlodipine 10 MG TAB PO SCH (09:15)
--- NOTE | 2018-07-20 09:53 | PRG ---
DATE OF SERVICE: 07/20/2018 SUBJECTIVE: Mr. Peace is doing okay today. No complaints. OBJECTIVE: VITAL SIGNS: His blood pressure however is extremely high at 193/120. Pulse 96, sinus. LUNGS: Clear. CARDIAC: Normal S1. Normal S2. ASSESSMENT: Hypertension, controlled, longstanding. PLAN: 1. Increase atenolol to 50 mg a day starting this morning. 2. He has received amlodipine 10 mg this morning. We gave him another 10 mg today, then changed to Procardia XL tomorrow 90 mg. 3. Depending on blood pressure tomorrow, may need to reduce hydralazine. Ideally, we would like to control him without hydralazine long-term to improve compliance. Hopefully, Procardia XL and beta-rod will be effective consideration for low-dose MOHIT inhibitors, but that will need to be used carefully in view of history of renal insufficiency. Job ID: [id number]
[2018-07-20] MEDS ORDERED: Atenolol 50 MG TAB PO SCH ×2 (10:15→21:00)
[2018-07-20] MEDS ORDERED: Polyethylene Glycol 3350 17 GM Packet PO PRN (10:45)
[2018-07-20] MEDS ORDERED: Polyethylene Glycol 3350 17 GM Packet PO SCH (10:46)
--- NOTE | 2018-07-20 12:16 | PRG ---
DATE OF SERVICE: 07/20/2018 Mr. Peace is resting quietly, in no distress. Blood pressure is still elevated, though improved. We were making daily adjustments in his medications. Cardiology has suggested switching from amlodipine to Procardia, and we will initiate this therapy tomorrow. In the event, he is asymptomatic except for headache, which has been present since admission. Continue to follow with Cardiology and adjust blood pressure medications accordingly. Job ID: [id number]
[2018-07-20] MEDS: Cyclobenzaprine 10 MG TAB PO PRN (17:13)
[2018-07-20] MEDS: levETIRAcetam 500 MG TAB PO SCH (21:40)
[2018-07-20] MEDS: Atenolol 25 MG TAB PO SCH (21:41)
[2018-07-20] MEDS: Docusate 100 MG CAP PO SCH (21:41)
[2018-07-21] MEDS: Acetaminophen 500 MG TAB PO SCH ×4 (00:21→17:19)
--- NOTE | 2018-07-21 06:19 | PDOC.FM ---
- Subjective Subjective: No complaints this morning. Denies chest pain, shortness of breath. Continues to have constipation, took miralax and colace yesterday. - Objective MAR Reviewed: Yes Vital Signs & Weight: Vital Signs (12 hours) Temp Pulse Resp BP Pulse Ox 07/21/18 04:00 98.2 F 68 16 169/99 H 99 07/21/18 00:00 98.9 F 67 16 159/86 H 100 07/20/18 22:30 90 167/92 H 07/20/18 21:41 96 07/20/18 20:00 99.3 F 96 16 186/106 H 99 Weight Weight 77.247 kg I&O: 07/19/18 07/20/18 07/21/18 06:59 06:59 06:59 Intake Total 1320 1320 950 Output Total 50 0 970 Balance 1270 1320 -20 Result Diagrams: 07/18/18 16:06 07/21/18 07:09 Phys Exam - Physical Examination Constitutional: NAD HEENT: moist MMs Neck: supple Respiratory: no wheezing, clear to auscultation bilateral Cardiovascular: RRR systolic murmur loudest at apex Gastrointestinal: soft, non-tender, positive bowel sounds Musculoskeletal: no edema Neurological: non-focal, moves all 4 limbs Psychiatric: normal affect, A&O x 3 Skin: normal turgor Dx/Plan (1) Hypertensive urgency Code(s): I16.0 - HYPERTENSIVE URGENCY Status: Acute (2) Subdural hematoma, acute Code(s): S06.5X9A - TRAUM SUBDR HEM W LOC OF UNSP DURATION, INIT Status: Acute (3) Elevated troponin Code(s): R74.8 - ABNORMAL LEVELS OF OTHER SERUM ENZYMES Status: Acute (4) Seizure Code(s): R56.9 - UNSPECIFIED CONVULSIONS Status: Acute (5) Hyponatremia Code(s): E87.1 - HYPO-OSMOLALITY AND HYPONATREMIA Status: Acute (6) Hypokalemia Code(s): E87.6 - HYPOKALEMIA Status: Acute - Plan Plan: 42yo male with pmh of HTN and gastric ulcer presenting in HTN urgency found to have subdural hematoma Hypertensive urgency - Initial BP 250/130s, asymptomatic - Continue Amlodipine 10mg, PO hydralazine 50mg TID, Atenolol 25mg BID, Nifedipine - PRN nifedipine & hydralazine. Has not needed in last 24hrs - Avoid lisinopril due to allergy - Echo, aldosterone/renin pending Seizure - Likely result of subdural hematoma. Pt with hx of seizure 2011 - Continue Keppra - Neurology following - Seizure precautions and Ativan PRN Elevated Troponin - Likely demand ischemia. Pt denies chest pain - 0.372-> 0.784-> 0.446 - Cardiology consulted, apprec recs Subdural hematoma - S/p fall, no neural defect - Neurosurgery reports no surgical intervention needed, only BP control - Keppra for seizure prophylaxis - F/u in 4 w[address] outpt for repeat CT - PT/OT consulted, rec Rehab vs swing bed - CM consulted Hyponatremia, improving - Continue to monitor with BMPs - Mg 1.9 Hypokalemia - Continue to replace with KCl, trend BMP - Checking Aldosterone, renin ARABELLA vs CKD - Unknown baseline - Monitor with daily BMP Hx of gastric ulcer - Avoid NSAIDs, Continue pepcid Code Status: FULL DVT ppx: SCDs PCP: Dr Schneider ([place]) Dispo: Pending CM for placement
[2018-07-21 07:42] LABS: Anion Gap 16 mmol/L (10-20); BUN (Urea Nitrogen) 19 mg/dL (8.9-20.6); Calc. Creatinine Clearance 79 mL/min (70-130); Carbon Dioxide 26 mmol/L (22-29); Chloride 97 mmol/L (98-107); Estimated GFR-MDRD 72; Glucose 76 mg/dL (70-105); Potassium 4.5 mmol/L (3.5-5.1); Sodium 134 mmol/L (136-145)
[2018-07-21] MEDS ORDERED: Atenolol 50 MG TAB PO SCH (09:00)
[2018-07-21] MEDS ORDERED: Amlodipine 10 MG TAB PO SCH (09:00)
[2018-07-21] MEDS ORDERED: Polyethylene Glycol 3350 17 GM Packet PO SCH ×2 (09:00)
[2018-07-21] MEDS: hydrALAZINE 25 MG TAB PO SCH ×3 (09:34→20:34)
[2018-07-21] MEDS: levETIRAcetam 500 MG TAB PO SCH ×2 (09:34→20:34)
[2018-07-21] MEDS: Potassium Chloride 20 MEQ TAB PO SCH ×2 (09:34→17:19)
[2018-07-21] MEDS: Docusate 100 MG CAP PO SCH ×2 (09:34→20:35)
[2018-07-21] MEDS: Famotidine 20 MG TAB PO SCH ×2 (09:35→20:34)
[2018-07-21] MEDS: Atenolol 25 MG TAB PO SCH ×2 (09:35→20:34)
[2018-07-21] MEDS: NIFEdipine XL 90 MG TAB PO SCH (09:35)
--- NOTE | 2018-07-21 13:57 | PRG ---
DATE OF SERVICE: 07/21/2018 Mr. Peace looks and feels better. Still with slight headache. Blood pressure is still not under good control, but better control than upon admission. We will discharge in a day with instructions to please follow up closely with his PCP, so that further adjustments can be made in his blood pressure medications. Job ID: [id number]
--- NOTE | 2018-07-21 18:56 | PRG ---
DATE OF SERVICE: 07/21/2018 SUBJECTIVE: Mr. Peace is doing okay. No chest pain or pressure. OBJECTIVE: VITAL SIGNS: His blood pressure is variable, this morning it was 175/99, most recently 119/79 and pulse 90, it is regular. LUNGS: Clear. CARDIAC: Normal S1 and S2. ASSESSMENT: 1. Hypertension with hypertensive heart disease. His echocardiogram showed left ventricular hypertrophy, to my interpretation looks [id number]. 2. Renal insufficiency, improving. Creatinine is down to 1.31. PLAN: 1. I would recommend trying to simplify his blood pressure medicines as much as possible. His hypertension, I suspect has been very poorly controlled. I try to simplify this as much as possible. My recommendation will be to give Procardia XL 90 mg a day. 2. Atenolol 50 mg a day. 3. I would add on other medicines if needed. I have reduced the hydralazine to 25 mg 3 times a day. Ideally, if he could be treated with Procardia XL 90 mg a day and atenolol 50 mg a day that would be a higher chance of being compliant. The patient should be followed closely. Recommend he get a blood pressure cuff at home and follow up carefully with his primary care physician. Job ID: [id number]
[2018-07-22] MEDS: Acetaminophen 500 MG TAB PO SCH ×2 (02:44→06:04)
[2018-07-22 06:18] LABS: Anion Gap 12 mmol/L (10-20); BUN (Urea Nitrogen) 21 mg/dL (8.9-20.6); Calc. Creatinine Clearance 75 mL/min (70-130); Calcium 9.6 mg/dL (7.8-10.44); Carbon Dioxide 28 mmol/L (22-29); Chloride 97 mmol/L (98-107); Estimated GFR-MDRD 68; Glucose 89 mg/dL (70-105); Potassium 4.4 mmol/L (3.5-5.1); Sodium 133 mmol/L (136-145)
[2018-07-22 08:07] VITALS: BP 162/99; TEMP 98.9
[2018-07-22] MEDS ORDERED: Atenolol 25 MG TAB PO SCH (09:00)
[2018-07-22] MEDS ORDERED: Polyethylene Glycol 3350 17 GM Packet PER TUBE SCH (09:00)
[2018-07-22] MEDS ORDERED: Atenolol 50 MG TAB PO SCH (09:00)
[2018-07-22] MEDS: hydrALAZINE 25 MG TAB PO SCH (09:41)
[2018-07-22] MEDS: NIFEdipine XL 90 MG TAB PO SCH (09:42)
[2018-07-22] MEDS: Famotidine 20 MG TAB PO SCH (09:58)
[2018-07-22] MEDS: levETIRAcetam 500 MG TAB PO SCH (09:58)
--- NOTE | 2018-07-23 06:03 | DIS ---
DATE OF ADMISSION: 07/16/2018 DATE OF DISCHARGE: 07/21/2018 RESIDENT: Yashira Yarbrough MD, PGY-1. ADMITTING ATTENDING: Daniel Tarango MD DISCHARGE ATTENDING: Daniel Tarango MD CONSULTS: 1. Neurosurgery. 2. Cardiology. 3. Neurology. PROCEDURES PERFORMED: 1. Acute subdural hematoma. Recommend neuro consult. 2. Brain CT without contrast 07/17/2018, stable subdural hemorrhage. 3. Brain CTA 07/18/2018, stable appearance of subdural hemorrhage along the left cerebellar tentorium and along the inner hemispheric band. 4. Cervical spine CT, 07/16/2018, multilevel degenerative change of the cervical spine without evidence of a fracture or subluxation. Straightening of normal cervical lordotic curvature. 5. Echocardiogram, EF 50% to 55%. Moderate concentric left ventricular hypertrophy. Mild tricuspid and mitral regurgitation. PRIMARY DIAGNOSES: 1. Hypertensive urgency. 2. Seizure. 3. Subdural hematoma. SECONDARY DIAGNOSES: 1. Elevated troponin. 2. Hyponatremia. 3. Hypokalemia. 4. Acute kidney injury versus chronic kidney disease, likely acute tubular necrosis on chronic kidney disease. 5. History of gastric ulcer. DISCHARGE MEDICATIONS: 1. Atenolol 25 mg b.i.d. 2. Aspirin 81 mg daily. 3. Colace 100 mg b.i.d. p.r.n. 4. Pepcid 20 mg b.i.d. 5. Hydralazine 50 mg t.i.d. 6. Keppra 1000 mg b.i.d. 7. Procardia 90 mg daily. 8. MiraLAX 17 g daily p.r.n. 9. Potassium chloride 40 mEq b.i.d. x4 doses. HISTORY OF PRESENT ILLNESS/HOSPITAL COURSE: Mr. Peace is a 42-year-old male with past medical history of hypertension and gastric ulcer, presented to the ED in [place] with chief complaint of vomiting. He reported that on Wednesday, he had fallen off a horse and hit the back of his head and blacked out for less than 1 minute. He did not seek medical attention. He started vomiting the day prior to admission on 07/15/2018 and had a headache since the fall. reported some episodes of absent staring. He also reports he had been taking his labetalol and clonidine for his hypertension and had decreased his med intake prior to admission. Of note, the patient is a tobacco user and smokes marijuana. Vitals at admission, blood pressure 208/119, heart rate 59, respiratory rate 19, T-max 99.1, and 100 % on room air. Physical exam was unremarkable. Labs at admission were notable for potassium 3.4, creatinine 1.5 with a GFR of 62. UDS was positive for cannabinoids. Creatinine was stable throughout the course of hospitalization and this is likely chronic kidney disease secondary to his uncontrolled hypertension. Creatinine at discharge 1.38, with GFR 68 at discharge. Neurosurgery was consulted. The patient was placed on Keppra for seizure prophylaxis after CT showed subdural hematoma. The patient did not have any neurological defects. For his subdural hematoma, Neurosurgery reported no surgical intervention needed. Strict control of blood pressure, follow up in 4 weeks as an outpatient for repeat CT, and to continue the Keppra for seizure prophylaxis. In regard to his hypertensive urgency, initial blood pressures were 250s/130s. He was asymptomatic. He was started on hydrochlorothiazide with p.r.n. nifedipine and hydralazine. After initiation of hydrochlorothiazide, the patient became hyponatremic with his lowest sodium being 129 on 07/18/2018. Pt was admitted with sodium of 139. Due to this hyponatremia , he was actually taken off hydrochlorothiazide once other medications were started and this showed improvement of his hyponatremia. It was 133 at discharge. His blood pressure control was a struggle throughout the course of the hospitalization. He was started on amlodipine 10 and PO hydralazine 25mg while still on hydrochlorothiazide and was still requiring p.r.n. blood pressure medications. Hydralazine was increased to 50mg TID. Hydrochlorothiazide was stopped due to hyponatremia and Procardia 90 mg daily was started by Cardiology. The patient's blood pressure medication options are limited due to patient's lisinopril allergy that causes angioedema of lips. This regimen of medications did help with the blood pressure. The day prior to discharge, blood pressures ranged from 119 to 162 systolic and 72 to 102 diastolic, which was a great improvement from consistently running 160 to 195 over 90s to 120s diastolic during the rest of the course of hospitalization. Workup for secondary causes of hypertension including renin aldosterone have been negative. Due to patient having systolic murmur, echo was obtained and ultimately normal with the exception of mild mitral and tricuspid regurg that can be followed up with an echo in 1 year. No evidence for coarctation. A code green was called. The patient had reported seizure-like activity of full body shaking with less than 1 minute in duration. He did not hit his head and was diaphoretic during the episode. He did have no loss of urine. Afterwards, the patient appeared to be postictal with slow return to baseline mental status. This is while he was on Keppra for seizure prophylaxis. At this time, prophylactic CBC, CMP, and Keppra level were ordered. CT was repeated that showed stable subdural hematoma. Ativan was added p.r.n. for seizures. Vitals were stable during this episode, but there was some concern on the tele monitoring that patient had ST-segment elevation. EKG was repeated that did show some possible T-wave inversion. Troponin and CK-MB drawn revealed troponin 0.372, 0.784, 0.446. CK-MB 3.5, 4.6, 3.4. Cardiology was consulted and this was thought to be likely secondary to demand ischemia during seizure. Hemoglobin A1c 4.7%. PT and OT were also consulted, who recommended rehab versus swing bed. However, the patient is uninsured and [facility] was the best option in his case. Therefore, he was discharged with Home Health, PT, and OT. DISPOSITION: Stable. DISCHARGE INSTRUCTIONS: 1. Location: Home with Home Health. 2. Diet: Heart healthy, low-sodium. 3. Activity: No restrictions. 4. Followup: Follow up with PCP, Dr. Schneider in [place] within 7 days and Neurosurgery within 4 weeks for outpatient followup and repeat CT. Job ID: [id number] [facility]
== END 2018-07-22 09:54 | disposition home health service (06) | DRG 82 ==
LOC: ERS 13:10 → 2SE 18:28
PROVIDERS: ADMIT Family Medicine; ATTEND Family Medicine
DX: S06.5X9A Traumatic subdural hemorrhage with loss of consciousness of unspecified duration, initial encounter (principal); N17.0 Acute kidney failure with tubular necrosis; E87.1 Hypo-osmolality and hyponatremia; I47.1 Supraventricular tachycardia; K59.00 Constipation, unspecified; E86.0 Dehydration; F17.210 Nicotine dependence, cigarettes, uncomplicated; I16.0 Hypertensive urgency; F07.81 Postconcussional syndrome; V80.010A Animal-rider injured by fall from or being thrown from horse in noncollision accident, initial encounter; I12.9 Hypertensive chronic kidney disease with stage 1 through stage 4 chronic kidney disease, or unspecified chronic kidney disease; Y92.9 Unspecified place or not applicable; N18.9 Chronic kidney disease, unspecified; R74.8 Abnormal levels of other serum enzymes; R56.9 Unspecified convulsions; E87.6 Hypokalemia; Z87.11 Personal history of peptic ulcer disease; Z79.899 Other long term (current) drug therapy
CPT/HCPCS: 36415; 36416; 70450; 72125; 80048; 80061; 80177; 80306; 82088; 82553; 83036; 83735; 83880; 84146; 84244; 84484; 85025; 86780; 90471; 90732; 93005; 93010; 93306; 96361; 96374; G0009; J0131; J0360; J1953; J2405; J7050; Q0162